=== PATIENT | female | born 1980 | race Caucasian/White ===

== ENCOUNTER → 2018-09-20 | Outpatient (REF) ==
--- NOTE | 2018-09-21 03:39 | REP ---
Clinical: Cervical neck pain. Technique: AP, lateral, swimmers, and open mouth views of the cervical spine. Findings: Alignment is maintained. Vertebral bodies are intact. Disc spaces appear normal. Open mouth view demonstrates normal C1-C2 articulation and odontoid process. Impression: Normal cervical spine radiographs. If the patient remains symptomatic consider MRI for further investigation. Electronically Signed by Lee Christianson MD 09/21/2018 03:30 A
== END ==
LOC: M SMT 09:02
PROVIDERS: ATTEND Internal Medicine
DX: Z02.71 Encounter for disability determination (principal)